=== PATIENT | female | born 1975 | race Asian ===

== ENCOUNTER → 2016-09-09 | Outpatient (CLI) | payer OTHER ==
[~2016-09-09] MED LIST: ACET-749 PO; CYAN1LOZ2 PO; DOCU-94 PO; DOXY100C PO; FRRS300 PO; PRT40 PO
== END | disposition home or self-care (01) ==
LOC: C.LAB1850 13:15
PROVIDERS: ATTEND Obstetrics & Gynecology
DX: Z30.8 Encounter for other contraceptive management (principal)

== ENCOUNTER 2017-05-17 10:32 | Emergency (ER) | payer OTHER ==
[~2017-05-17] VITALS: Ht 154.9 cm; Wt 82.6 kg
[~2017-05-17 10:32] MED LIST changes: -DOXY100C PO
[2017-05-17 10:34] VITALS: TEMP 36.7; Ht 154.9 cm; Wt 82.6 kg
--- NOTE | 2017-05-17 11:22 | EMERGENCY ROOM VISIT NOTE ---
History Report prepared by Enedina: Radha Iverson Under the Supervision of: Dr. Maykel Salcido M.D. First contact with patient: 10:44 Chief Complaint: OTHER COMPLAINT Stated Complaint: LARGE/PAINFUL BUMP IN BREAST History of Present Illness The patient is a 41 year old female who presents to the Emergency Room with complaints of constant left sided breast pain for the past week. The patient has had a small bump under her left breast for the past 2 years. She has spoken to her ship's cook about this in the past and was told that it was nothing to worry about. The patient thinks that she was given antibiotics at that time, but she cannot remember. The patient was and gave 1 year ago. She states that since she gave the lump has been getting bigger. Her LNMP was 1 week ago. During that time the lump became very painful and tender to the touch. This has continued this week. The patient rates her pain as an 8/10 in severity. She denies any fevers, chills, or drainage from the area. She had a normal mammogram a few years ago. Source of History: patient Onset: 1 week ago Position: other (left breast) Symptom Intensity: 8/10 Timing: constant Modifying Factors (Worsening): other (palpation) Associated Symptoms: No fevers, No chills Note: Pt denies drainage. Review of Systems See HPI for pertinent positives & negatives. A total of 10 systems reviewed and were otherwise negative. Past Medical & Surgical Medical Problems: (1) Anemia (2) Edema (3) with 32 completed weeks gestation (4) with 35 completed weeks gestation (5) contractions (6) Spotting affecting in third trimester (7) Vaginal discharge in in third trimester Family History Cancer Diabetes mellitus Heart disease Hypertension Social History Smoking Status: Never Smoker Alcohol Use: none Drug Use: none Marital Status: Housing Status: lives with family Occupation Status: student Current/Historical Medications Scheduled Doxycycline Hyclate (Vibramycin), 100 MG PO BID Allergies Coded Allergies: Ibuprofen (Unverified Allergy, Unknown, SWELLING, HEART RACES , 05/17/17) Naproxen (Unverified Allergy, Unknown, SWELLING, HEART RACES , 05/17/17) Physical Exam Vital Signs Date Time Temp Pulse Resp B/P (MAP) Pulse Ox O2 Delivery O2 Flow Rate FiO2 05/17/17 12:49 82 18 115/72 98 05/17/17 11:58 76 18 104/55 99 Room Air 05/17/17 10:34 36.7 88 16 122/72 99 Room Air Physical Exam GENERAL: Patient is in no acute distress. HEENT: No acute trauma, normocephalic atraumatic, mucous membranes moist, no nasal congestion, no scleral icterus. NECK: No stridor, no adenopathy, no meningismus, trachea is midline. LUNGS: Clear to auscultation bilaterally, no wheeze, no rhonchi, breath sounds equal. HEART: Without murmurs gallops or rubs, regular rate and rhythm. CHEST: There is a 3 cm firm and possibly fluid-filled lesion to the inferior medial margin of the left breast, no drainage or cellulitis. ABDOMEN: Soft, nontender, bowel sounds positive, no hernias, no peritonitis. EXTREMITIES: No cyanosis or edema, full range of motion of all the joints without pain or difficulty, no signs for acute trauma. NEUROLOGIC: Oriented x 3, no acute motor or sensory deficits, no focal weakness. SKIN: No rash, no jaundice, no diaphoresis. Medical Decision & Procedures ER Provider Diagnostic Interpretation: Radiology results as stated below per my review and radiologist interpretation: LEFT BREAST ULTRASOUND CLINICAL HISTORY: Painful left breast lump. COMPARISON STUDY: Left breast ultrasound May 31, 2013. FINDINGS: Sonography of the left breast at site of palpable abnormality demonstrated a 1.4 x 0.8 x 1.8 cm complex cystic subcutaneous lesion of the left breast with internal echoes which may reflect the lesion shown on exam of May 31, 2013. This is located at the 8:00 position. There is apparent extension to the skin. This lesion is immediately deep to the dermis. No additional lesions were identified. No color flow was identified within this lesion although there was apparent increased vascularity adjacent to this lesion. IMPRESSION: 1.8 x 1.4 x 0.8 cm complex subcutaneous cystic lesion of the left breast at the 8:00 position which may correspond to the lesion shown on exam of May 31, 2013. While nonspecific, a sebaceous cyst is favored and the findings raise the possibility of an infected sebaceous cyst. An abscess could have this imaging appearance. This could be correlated with clinical evidence for an infectious process. Imaging follow up is recommended to ensure resolution. Electronically signed by: Josep Wheeler M.D. 05/17/2017 12:05 PM Dictated Date/Time: 05/17/2017 12:00 PM Laboratory Results 05/17/17 11:15 Red Blood Count 4.57, Mean Corpuscular Volume 74.8, Mean Corpuscular Hemoglobin 22.1, Mean Corpuscular Hemoglobin Concent 29.5, Mean Platelet Volume 10.5, Neutrophils (%) (Auto) 60.5, Lymphocytes (%) (Auto) 32.0, Monocytes (%) (Auto) 5.2, Eosinophils (%) (Auto) 1.9, Basophils (%) (Auto) 0.2, Neutrophils # (Auto) 3.23, Lymphocytes # (Auto) 1.71, Monocytes # (Auto) 0.28, Eosinophils # (Auto) 0.10, Basophils # (Auto) 0.01 05/17/17 11:15 Test 05/17/17 11:15 White Blood Count 5.34 K/uL (4.8-10.8) Red Blood Count 4.57 M/uL (4.2-5.4) Hemoglobin 10.1 g/dL (12.0-16.0) Hematocrit 34.2 % (37-47) Mean Corpuscular Volume 74.8 fL (80-100) Mean Corpuscular Hemoglobin 22.1 pg (25-34) Mean Corpuscular Hemoglobin Concent 29.5 g/dl (32-36) Platelet Count 344 K/uL (130-400) Mean Platelet Volume 10.5 fL (7.4-10.4) Neutrophils (%) (Auto) 60.5 % Lymphocytes (%) (Auto) 32.0 % Monocytes (%) (Auto) 5.2 % Eosinophils (%) (Auto) 1.9 % Basophils (%) (Auto) 0.2 % Neutrophils # (Auto) 3.23 K/uL (1.4-6.5) Lymphocytes # (Auto) 1.71 K/uL (1.2-3.4) Monocytes # (Auto) 0.28 K/uL (0.11-0.59) Eosinophils # (Auto) 0.10 K/uL (0-0.5) Basophils # (Auto) 0.01 K/uL (0-0.2) RDW Standard Deviation 44.1 fL (36.4-46.3) RDW Coefficient of Variation 16.0 % (11.5-14.5) Immature Granulocyte % (Auto) 0.2 % Immature Granulocyte # (Auto) 0.01 K/uL (0.00-0.02) Microcytosis PRESENT Anion Gap 8.0 mmol/L (3-11) Est Creatinine Clear Calc Drug Dose 145.7 ml/min Estimated GFR () 140.3 Estimated GFR (Non- 121.1 BUN/Creatinine Ratio 28.8 (10-20) Calcium Level 8.3 mg/dl (8.5-10.1) Laboratory results reviewed by me. Medications Administered Medications (Trade) Dose Ordered Sig/Adore Route Start Time Stop Time Status Last Admin Dose Admin Doxycycline Hyclate (Vibramycin Cap) 100 mg ONE ONCE PO 05/17/17 12:30 05/17/17 12:31 DC 05/17/17 12:44 100 MG ED Course 1044: The patient was evaluated in room B10. A complete history and physical exam was performed. 1222: I spoke with Dr. Mcnulty of plastic surgery and breast reconstruction. We discussed the patient's case. She did not think that the area should be opened now. She recommended antibiotics and she will follow-up with the patient in the office later this week. 1230: Vibramycin 100 mg PO 1231: I reassessed the patient at this time. She is feeling better and resting comfortably. I discussed the results and treatment plan with the patient. I answered all pertaining questions that she had. She expressed understanding and verbalized agreement. The patient will be discharged home. Medical Decision Differential diagnoses includes abscess or cyst, cellulitis, ingrown hair follicle, tumor. There is no leukocytosis, a mild anemia is present. Renal panel testing shows a very mild blood sugar elevation for which the patient can follow with the family doctor's office. Left breast ultrasound shows a cystic lesion consistent with cyst or possibly abscess. The patient is not toxic or febrile. There was no cellulitis to the left breast. I did speak with the on-call plastic surgeon and breast reconstruction specialist. The patient is to be placed on antibiotics and then seen in the office for potential excision of the cystic structure. Patient was happy with this plan and care. She was given oral doxycycline before discharge. She was given information to set up an appointment for this week. Medication Reconcilliation Current Medication List: was personally reviewed by me Blood Pressure Screening Patient's blood pressure: Normal blood pressure Consults Time Called: 1219 Consulting Physician: Dr. Mcnulty Returned Call: [address] Mcnulty of plastic surgery and breast reconstruction. We discussed the patient's case. She did not think that the area should be opened now. She recommended antibiotics and she will follow-up with the patient in the office later this week. Impression Primary Impression: Cyst of left breast Scribe Attestation The scribe's documentation has been prepared under my direction and personally reviewed by me in its entirety. I confirm that the note above accurately reflects all work, treatment, procedures, and medical decision making performed by me. Departure Information Dispostion Home / Self-Care Prescriptions Doxycycline Hyclate (VIBRAMYCIN) 100 Mg Cap 100 MG PO BID for 14 Days, #28 CAP Prov: Maykel Salcido M.D. 05/17/17 Referrals Mya Kate (PCP) Sharyn Mcnulty MD Forms HOME CARE DOCUMENTATION FORM, IMPORTANT VISIT INFORMATION, WORK / SCHOOL INSTRUCTIONS Patient Instructions My [facility]
[2017-05-17 11:42] LABS: BASO % 0.2 %; BASO ABS # 0.01 K/uL (0-0.2); EOS % 1.9 %; HEMATOCRIT 34.2 % (37-47); IG% 0.2 %; LYMPH ABS # 1.71 K/uL (1.2-3.4); MEAN CELL VOLUME 74.8 fL (80-100); MEAN CORPUSCULAR HEMOGLOBIN 22.1 pg (25-34); MEAN CORPUSCULAR HGB CONC 29.5 g/dl (32-36); MEAN PLATELET VOLUME 10.5 fL (7.4-10.4); MONO % 5.2 %; NEUT % 60.5 %; PLATELET COUNT 344 K/uL (130-400); RED BLOOD COUNT 4.57 M/uL (4.2-5.4); WHITE BLOOD COUNT 5.34 K/uL (4.8-10.8)
[2017-05-17 12:01] LABS: BUN/CREATININE RATIO 28.8 (10-20); CALCIUM 8.3 mg/dl (8.5-10.1); COMPLETE YES; CREATININE 0.5 mg/dl (0.60-1.20); MICROCYTOSIS PRESENT; POTASSIUM 3.8 mmol/L (3.5-5.1)
--- NOTE | 2017-05-17 12:06 | DIAGNOSTIC IMAGING REPORT ---
LEFT BREAST ULTRASOUND CLINICAL HISTORY: Painful left breast lump. COMPARISON STUDY: Left breast ultrasound May 31, 2013. FINDINGS: Sonography of the left breast at site of palpable abnormality demonstrated a 1.4 x 0.8 x 1.8 cm complex cystic subcutaneous lesion of the left breast with internal echoes which may reflect the lesion shown on exam of May 31, 2013. This is located at the 8:00 position. There is apparent extension to the skin. This lesion is immediately deep to the dermis. No additional lesions were identified. No color flow was identified within this lesion although there was apparent increased vascularity adjacent to this lesion. IMPRESSION: 1.8 x 1.4 x 0.8 cm complex subcutaneous cystic lesion of the left breast at the 8:00 position which may correspond to the lesion shown on exam of May 31, 2013. While nonspecific, a sebaceous cyst is favored and the findings raise the possibility of an infected sebaceous cyst. An abscess could have this imaging appearance. This could be correlated with clinical evidence for an infectious process. Imaging follow up is recommended to ensure resolution. Electronically signed by: Josep Wheeler M.D. 05/17/2017 12:05 PM Dictated Date/Time: 05/17/2017 12:00 PM
[2017-05-17] MEDS ORDERED: DOXY100C PO (12:28)
[2017-05-17] MEDS ORDERED: DOXYCYCLINE HYCLATE 100 MG CAP PO ONE (12:30)
[2017-05-17 12:49] VITALS: BP 115/72; PULSE 82; O2SAT 98
== END 2017-05-17 12:46 | disposition home or self-care (01) ==
LOC: C.EDB 10:34
DX: N60.02 Solitary cyst of left breast (principal); N64.4 Mastodynia

== ENCOUNTER → 2017-08-08 | Outpatient (CLI) | payer OTHER | END | disposition home or self-care (01) | LOC: C.PAPS 09:12 | PROVIDERS: ATTEND Obstetrics & Gynecology | DX: Z01.419 Encounter for gynecological examination (general) (routine) without abnormal findings (principal) ==

== ENCOUNTER 2017-08-17 00:45 | Emergency (ER) | payer OTHER ==
[~2017-08-17] VITALS: Ht 154.9 cm; Wt 81.0 kg
[2017-08-17 00:45] VITALS: TEMP 36.7; Ht 154.9 cm; Wt 81.0 kg
[2017-08-17] MEDS ORDERED: ALBUT/IPRATROP 3MG/0.5MG NEB 3 ML VIAL INH STA (00:51)
[2017-08-17] MEDS ORDERED: ALUMINUM/MAGNESIUM SUSP 30 ML UDC PO STA (00:51)
[2017-08-17] MEDS ORDERED: LIDOCAINE HCL 2% VISC SOLN 20 ML UDC PO STA (00:51)
--- NOTE | 2017-08-17 01:26 | EMERGENCY ROOM VISIT NOTE ---
History First contact with patient: 00:50 Chief Complaint: COUGH Stated Complaint: COUGH Nursing Triage Summary: Patient in room with daughter, who is a patient in the ED currently. Patient states, "I think I need to be seen. I've been coughing, too and I had it before her." History of Present Illness The patient is a 41 year old female who presents to the Emergency Room with complaints of cough, congestion, runny nose, throat irritation for the past week. Patient denies chest pain, dyspnea, neck stiffness, sore throat, abdominal pain, vomiting, diarrhea. Child is sick with similar symptoms. Review of Systems See HPI for pertinent positives & negatives. A total of 10 systems reviewed and were otherwise negative. Past Medical/Surgical History Medical Problems: (1) Anemia (2) Edema (3) with 32 completed weeks gestation (4) with 35 completed weeks gestation (5) contractions (6) Spotting affecting in third trimester (7) Vaginal discharge in in third trimester Family History Cancer Diabetes mellitus Heart disease Hypertension Social History Smoking Status: Never Smoker Smokeless Tobacco Use: No Alcohol Use: none Drug Use: none Marital Status: Housing Status: lives with family Physical Exam Vital Signs Date Time Temp Pulse Resp B/P (MAP) Pulse Ox O2 Delivery O2 Flow Rate FiO2 08/17/17 00:45 36.7 74 18 122/86 96 Room Air 08/17/17 00:45 99 Room Air Physical Exam VITALS: Vitals are noted on the nurse's note and reviewed by myself. Vital signs stable. GENERAL: Pleasant female speaking in full sentences, in no acute distress, nondiaphoretic, well-developed well-nourished. SKIN: The skin was without rashes, erythema, edema, or bruising. There is no tenting of the skin. Capillary reflex less than 2 seconds. HEAD: Normocephalic atraumatic. EARS: External auditory canals clear, tympanic membranes pearly ross without erythema or effusion bilaterally. EYES: Pupils equal round and reactive to light and accommodation. Conjunctivae without injection, sclerae without icterus. Extraocular movements intact. NOSE: Patent, turbinates without inflammation or discharge. No sinus tenderness. MOUTH: Mucous membranes moist. Pharynx without erythema or exudate. Uvula midline. Airway patent. Tongue does not deviate. NECK: Supple without nuchal rigidity. No lymphadenopathy. No thyromegaly. Cervical spine is nontender. No JVD. HEART: Regular rate and rhythm without murmurs gallops or rubs. LUNGS: Clear to auscultation bilaterally without wheezes, rales or rhonchi. No dullness to percussion. No retractions or accessory muscle use. ABDOMEN: Positive bowel sounds x 4. Normal tympanic percussion. Soft, nontender, without masses or organomegaly. Alejandra sign negative. No guarding or rebound tenderness. MUSCULOSKELETAL: No muscle atrophy, erythema, or edema noted. NEURO: Patient was alert and oriented to person place and time. Normal sensation to light and sharp touch. No focal neurological deficits. Medical Decision & Procedures Medications Administered Medications (Trade) Dose Ordered Sig/Adore Route Start Time Stop Time Status Last Admin Dose Admin Albuterol/ Ipratropium (Duoneb) 3 ml NOW STAT INH 08/17/17 00:51 08/17/17 00:52 DC 08/17/17 00:58 3 ML Lidocaine HCl (Viscous Lidocaine 2% Soln) 10 ml NOW STAT PO 08/17/17 00:51 08/17/17 00:52 DC 08/17/17 00:58 10 ML Al Hydroxide/Mg Hydroxide (Maalox Susp) 30 ml NOW STAT PO 08/17/17 00:51 08/17/17 00:52 DC 08/17/17 00:58 30 ML ED Course Prior records/ancillary studies reviewed. Triage Nursing notes reviewed. Additional history obtained from family The patient's history was concerning for a cold symptoms. Differential diagnosis: Etiologies such as viral syndrome, tonsillitis, streptococcal pharyngitis, bronchitis, peritonsillar abscess, retropharyngeal abscess, otitis, pneumonia, influenza, as well as others were entertained. ER treatment provided: Nebulizer, GI cocktail On reassessment the patient felt better. Diagnostics interpreted by me: Imaging studies: Chest x-ray concerning for possible developing right lower lobe infiltrate without pneumothorax or free air per my interpretation This appears to be consistent with pneumonia. Patient has had the meningitis. She is well-appearing. She is tolerating fluids. Symptoms present for over a week. She is advised to take medicines as directed and to follow-up with family care in a few days or here in the ER sooner for high fevers, lethargy, difficulty breathing, worsening signs or symptoms or as needed. By the evaluation outlined above emergent etiologies such as peritonsillar abscess, retropharyngeal abscess, otitis, meningitis, urinary tract infection, sepsis, bacteremia, as well as others were deemed relatively unlikely. The pt informed about the findings as listed above. All questions were answered and pleased with the treatment. Return instructions were outlined and the patient was discharged in stable condition. Outpatient prescription management: Zithromax Referral: The patient was referred back to their primary care physician for follow-up in 2 to 3 days for a recheck of the current condition. The chart was completed utilizing [employer] Speech voice recognition software. Grammatical errors, random word insertions, pronoun errors, and incomplete sentences are an occassional consequence of this system due to software limitations, ambient noise, and hardware issues. Any formal questions or concerns about the content, text, or information contained within the body of this dictation should be directly addressed to the physician therapist's assistant for clarification. Medical Decision As above Medication Reconcilliation Current Medication List: was personally reviewed by me Blood Pressure Screening Patient's blood pressure: Normal blood pressure Impression Primary Impression: Pneumonia Departure Information Dispostion Home / Self-Care Condition GOOD Referrals Mya Kate (PCP) Patient Instructions My [facility] Additional Instructions Azithromycin(Zithromax) 500mg: Take one a day for 4 additional days. All antibiotics can cause diarrhea. If this occurs and you feel worse or it does not resolve in 1-2 days follow up with your doctor or return to the Emergency Department as this could be signs of serious underlying problems. Any medication can cause an allergic reaction, stop the pills immediately and return to the ER for rash, hives, breathing difficulties, or swelling. Acetaminophen(Tylenol) may be used for fever or pain. Use 1000mg every six hours as needed. Avoid using more than 3000mg in a 24 hour period. Afrin nasal spray: 2-3 sprays to each nostril twice daily as needed for congestion. Do not use for more than 3-4 days because it can lead to worsening rebound congestion. Pseudoephedrine(Sudaphed): 30-60mg every 6 hours as needed for nasal congestion. Do not take this with other stimulant products or supplements. Albuterol Inhaler: Take 2 puffs four times daily for seven days, then as needed. Rest and drink plenty of fluids. Controlling your fever with Tylenol and Ibuprofen as above will make you feel better. Wash your hands after nose blowing, sneezing, or coughing. Most germs are spread through contact, therefore improper hygiene may result in your close contacts and loved ones becoming ill just like you. Continue current medications. Return to the ER for severe headache, neck stiffness, chest pain, difficulty breathing, fevers, vomiting, worsening of your condition, or as needed. Follow up with your primary physician this week for a recheck of your current condition. Problem Qualifiers Primary Impression: Pneumonia Pneumonia type: due to unspecified organism Laterality: right Lung location : lower lobe of lung Qualified Codes: J18.1 - Lobar pneumonia, unspecified organism
[2017-08-17] MEDS ORDERED: AZIT500T PO (01:27)
[2017-08-17] MEDS ORDERED: AZITHROMYCIN 250 MG TAB PO ONE (01:30)
[2017-08-17] MEDS ORDERED: ALBUTEROL HFA 8 GM INHALER INH ONE (01:30)
[2017-08-17 01:57] VITALS: BP 118/84; PULSE 82; O2SAT 97
--- NOTE | 2017-08-17 06:55 | DIAGNOSTIC IMAGING REPORT ---
CHEST 2 VIEWS ROUTINE CLINICAL HISTORY: cough/congestion x 1 week COMPARISON STUDY: Chest radiograph and chest CT April 29, 2016. FINDINGS: Lung volumes are at the lower limits of normal. There is no pneumothorax or pleural effusion. There is no consolidation to suggest pneumonia. There is no evidence of pulmonary edema. Cardiomediastinal silhouette is stable. IMPRESSION: No acute cardiopulmonary findings. Electronically signed by: Josep Wheeler M.D. 08/17/2017 6:54 AM Dictated Date/Time: 08/17/2017 6:53 AM
== END 2017-08-17 01:58 | disposition home or self-care (01) ==
LOC: C.EDB 00:45 → EDBD 00:45 → C.EDB 01:58
DX: J18.9 Pneumonia, unspecified organism (principal); Z83.3 Family history of diabetes mellitus; Z82.49 Family history of ischemic heart disease and other diseases of the circulatory system

== ENCOUNTER → 2017-09-15 | Outpatient (CLI) | payer OTHER ==
[~2017-09-15] MED LIST changes: -ACET-749 PO; +AZIT500T PO; -CYAN1LOZ2 PO; -DOCU-94 PO; -FRRS300 PO; -PRT40 PO
== END | disposition home or self-care (01) ==
LOC: C.PATHSPEC 18:04
PROVIDERS: ATTEND Plastic Surgery
DX: N60.02 Solitary cyst of left breast (principal); L72.0 Epidermal cyst; N64.9 Disorder of breast, unspecified

== ENCOUNTER → 2017-10-13 | Outpatient (CLI) | payer OTHER | END | disposition home or self-care (01) | LOC: C.LABSPEC 13:15 | PROVIDERS: ATTEND Obstetrics & Gynecology | DX: N89.8 Other specified noninflammatory disorders of vagina (principal) ==

== ENCOUNTER 2017-12-11 23:23 | Emergency (ER) | payer OTHER ==
[~2017-12-11] VITALS: Ht 154.9 cm; Wt 78.0 kg
[2017-12-11 23:31] VITALS: TEMP 36.8; Ht 154.9 cm; Wt 78.0 kg
[2017-12-11] MEDS ORDERED: SODIUM CHLORIDE 0.9% 1000ML 1,000 ML IV STA (23:47)
[2017-12-11] MEDS ORDERED: DiphenhydrAMINE HCL 50 MG/ML VIAL IV STA (23:47)
[2017-12-11] MEDS ORDERED: METOCLOPRAMIDE HCL INJ 5 MG/ML 2 ML VIAL IV STA (23:47)
[2017-12-11] MEDS ORDERED: SIME80CH PO (23:53)
[2017-12-12] MEDS ORDERED: ACETAMINOPHEN 500 MG TAB PO STA (00:03)
[2017-12-12 00:27] LABS: HEMATOCRIT 42.1 % (37-47); HEMOGLOBIN 14.4 g/dL (12.0-16.0); MEAN CELL VOLUME 86.3 fL (80-100); MEAN CORPUSCULAR HEMOGLOBIN 29.5 pg (25-34); MEAN CORPUSCULAR HGB CONC 34.2 g/dl (32-36); MEAN PLATELET VOLUME 10.3 fL (7.4-10.4); PLATELET COUNT 378 K/uL (130-400); RED CELL DISTRIBUTION WIDTH CV 14.2 % (11.5-14.5); RED CELL DISTRIBUTION WIDTH SD 44.2 fL (36.4-46.3); WHITE BLOOD COUNT 4.19 K/uL (4.8-10.8)
[2017-12-12 00:33] VITALS: O2SAT 98
[2017-12-12 00:49] LABS: ALBUMIN 4.4 gm/dl (3.4-5.0); CALCIUM 8.8 mg/dl (8.5-10.1); CREATININE 0.58 mg/dl (0.60-1.20); POTASSIUM 3.5 mmol/L (3.5-5.1)
[2017-12-12] MEDS ORDERED: MAGNESIUM SULFATE 1GM / D5W 1 GM BAG IV STA (00:53)
[2017-12-12] MEDS ORDERED: SODIUM CHLORIDE 0.9% 1000ML 1,000 ML IV STA (00:53)
[2017-12-12 00:59] LABS: TOTAL PROTEIN 8.3 gm/dl (6.4-8.2)
[2017-12-12] MEDS ORDERED: DEXTROSE 50% 50 ML SYR IV STA (01:10)
[2017-12-12] MEDS ORDERED: BENTYL HOME PACK 10 MG VIAL ONE (03:05)
[2017-12-12] MEDS ORDERED: DICY10CA55 PO (03:11)
[2017-12-12 03:12] VITALS: BP 124/68; PULSE 80; O2SAT 98
--- NOTE | 2017-12-12 03:29 | EMERGENCY ROOM VISIT NOTE ---
History First contact with patient: 23:36 Chief Complaint: DIZZY Stated Complaint: SEVERE BACK PAIN Nursing Triage Summary: pt c/o dizziness and fatigue for several days. pt reports she has been fasting for anglican purposes. pt has hx of gastric sleeve and electrolyte imbalances. also c/o generalized back pain. History of Present Illness The patient is a 42 year old female who presents to the Emergency Room with complaints of nausea, dehydration, lightheadedness and back achiness for the past few days with gastric sleeve bypass 3 weeks ago and has been barely eating or drinking secondary to fasting due to anglican purposes. Patient denies chest pain, dyspnea, vomiting, abdominal pain, fever, chills, cough, congestion , cold symptoms. Patient states she is a hard time drinking secondary to the recent surgery. Patient states due to her anglican beliefs she has been fasting these past 3 days during daylight hours. She has been unable to keep enough fluids in her. Review of Systems An 10 system review of systems was completed with positives and pertinent negatives listed in the HPI. Past Medical/Surgical History Medical Problems: (1) Anemia (2) Edema (3) with 32 completed weeks gestation (4) with 35 completed weeks gestation (5) contractions (6) Spotting affecting in third trimester (7) Vaginal discharge in in third trimester Family History Cancer Diabetes mellitus Heart disease Hypertension Social History Smoking Status: Never Smoker Alcohol Use: none Drug Use: none Marital Status: Housing Status: lives with family Current/Historical Medications Scheduled Dicyclomine Hcl (Bentyl), 10 MG PO Q6 Scheduled PRN Simethicone (Gas-X), 80 MG PO UD PRN for Gas or Constipation Physical Exam Vital Signs Date Time Temp Pulse Resp B/P (MAP) Pulse Ox O2 Delivery O2 Flow Rate FiO2 12/12/17 02:10 80 18 124/68 98 Room Air 12/12/17 00:33 98 Room Air 12/12/17 00:33 78 18 105/70 98 Room Air 91 106/80 94 113/80 12/11/17 23:31 36.8 89 16 114/80 99 Room Air Physical Exam VITALS: Vitals are noted on the nurse's note and reviewed by myself. Vital signs stable. GENERAL: Pleasant female, in no acute distress, nondiaphoretic, well-developed well-nourished. SKIN: The skin was without rashes, erythema, edema, or bruising. There is no tenting of the skin. Capillary reflex less than 2 seconds. HEAD: Normocephalic atraumatic. EARS: External auditory canals clear, tympanic membranes pearly ross without erythema or effusion bilaterally. EYES: Pupils equal round and reactive to light and accommodation. Conjunctivae without injection, sclerae without icterus. Extraocular movements intact. NOSE: Patent, turbinates without inflammation or discharge. No sinus tenderness. MOUTH: Mucous membranes mildly dry. Pharynx without erythema or exudate. Uvula midline. Airway patent. Tongue does not deviate. NECK: Supple without nuchal rigidity. No lymphadenopathy. No thyromegaly. Cervical spine is nontender. No JVD. HEART: Regular rate and rhythm without murmurs gallops or rubs. LUNGS: Clear to auscultation bilaterally without wheezes, rales or rhonchi. No retractions or accessory muscle use. ABDOMEN: Positive bowel sounds x 4. Normal tympanic percussion. Soft, nontender, without masses or organomegaly. Alejandra sign negative. No guarding or rebound tenderness. No CVA tenderness MUSCULOSKELETAL: No muscle atrophy, erythema, or edema noted. No thoracic or lumbar tenderness on exam. Patient can ambulate without difficulties. Paraspinous muscles tender to palpation. NEURO: Patient was alert and oriented to person place and time. Normal sensation to light and sharp touch. No focal neurological deficits. Medical Decision & Procedures Laboratory Results 12/11/17 00:11 Red Blood Count 4.88, Mean Corpuscular Volume 86.3, Mean Corpuscular Hemoglobin 29.5, Mean Corpuscular Hemoglobin Concent 34.2, Mean Platelet Volume 10.3 12/11/17 00:11 Test 12/11/17 00:11 12/12/17 00:18 12/12/17 02:05 White Blood Count 4.19 K/uL (4.8-10.8) Red Blood Count 4.88 M/uL (4.2-5.4) Hemoglobin 14.4 g/dL (12.0-16.0) Hematocrit 42.1 % (37-47) Mean Corpuscular Volume 86.3 fL (80-100) Mean Corpuscular Hemoglobin 29.5 pg (25-34) Mean Corpuscular Hemoglobin Concent 34.2 g/dl (32-36) Platelet Count 378 K/uL (130-400) Mean Platelet Volume 10.3 fL (7.4-10.4) RDW Standard Deviation 44.2 fL (36.4-46.3) RDW Coefficient of Variation 14.2 % (11.5-14.5) Neutrophils % (Manual) 29.0 % Lymphocytes % (Manual) 40.0 % Monocytes % (Manual) 5.0 % Eosinophils % (Manual) 3.0 % Basophils % (Manual) 1.0 % Neutrophils # (Manual) 1.22 K/uL (1.4-6.5) Total Absolute Neutrophils 1.22 K/uL (1.4-6.5) Lymphocytes # (Manual) 1.68 K/uL (1.2-3.4) Total Absolute Lymphocytes 2.60 K/uL (1.2-3.4) Monocytes # (Manual) 0.21 K/uL (0.11-0.59) Eosinophils # (Manual) 0.13 K/uL (0-0.5) Basophils # (Manual) 0.04 K/uL (0-0.2) Percent Large Granular Lymphocytes 22.0 % Absolute Large Granular Lymphocytes 0.92 K/uL Echinocytes 1+ Anion Gap 15.0 mmol/L (3-11) Est Creatinine Clear Calc Drug Dose 120.6 ml/min Estimated GFR () 132.7 Estimated GFR (Non- 114.5 BUN/Creatinine Ratio 5.2 (10-20) Calcium Level 8.8 mg/dl (8.5-10.1) Magnesium Level 1.6 mg/dl (1.8-2.4) Total Bilirubin 0.5 mg/dl (0.2-1) Direct Bilirubin 0.1 mg/dl (0-0.2) Aspartate Amino Transf (AST/SGOT) 31 U/L (15-37) Alanine Aminotransferase (ALT/SGPT) 58 U/L (12-78) Alkaline Phosphatase 59 U/L (45-117) Total Creatine Kinase 62 U/L (26-192) Total Protein 8.3 gm/dl (6.4-8.2) Albumin 4.4 gm/dl (3.4-5.0) Thyroid Stimulating Hormone (TSH) 1.820 uIu/ml (0.300-4.500) Human Chorionic Gonadotropin, Qual NEG (NEG) Urine Color YELLOW Urine Appearance CLEAR (CLEAR) Urine pH 5.5 (4.5-7.5) Urine Specific [place] 1.025 (1.000-1.030) Urine Protein TRACE (NEG) Urine Glucose (UA) NEG (NEG) Urine Ketones 4+ (NEG) Urine Occult Blood TRACE (NEG) Urine Nitrite NEG (NEG) Urine Bilirubin NEG (NEG) Urine Urobilinogen NEG (NEG) Urine Leukocyte Esterase NEG (NEG) Urine WBC (Auto) 1-5 /hpf (0-5) Urine RBC (Auto) 0-4 /hpf (0-4) Urine Hyaline Casts (Auto) 5-10 /lpf (0-5) Urine Epithelial Cells (Auto) >30 /lpf (0-5) Urine Bacteria (Auto) NEG (NEG) Bedside Glucose 180 mg/dl (70-90) Medications Administered Medications (Trade) Dose Ordered Sig/Adore Route Start Time Stop Time Status Last Admin Dose Admin Sodium Chloride 1,000 ml @ 999 mls/hr Q1H1M STAT IV 12/11/17 23:47 12/12/17 00:47 DC 12/12/17 00:32 999 MLS/HR Sodium Chloride 1,000 ml @ 999 mls/hr Q1H1M STAT IV 12/12/17 00:53 12/12/17 01:53 DC 12/12/17 01:24 999 MLS/HR Magnesium Sulfate (Magnesium Sulfate) 1 gm NOW STAT IV 12/12/17 00:53 12/12/17 00:54 DC 12/12/17 01:25 1 GM Dextrose (Dextrose 50% 50ML Syringe) 50 ml NOW STAT IV 12/12/17 01:10 12/12/17 01:11 DC 12/12/17 01:25 50 ML ED Course Prior records/ancillary studies reviewed and summarized above. Nursing notes reviewed. Additional history obtained from The patient's history was concerning for nausea, weakness, lightheadedness, back pain. Differential diagnosis: Etiologies such as metabolic, infection, hypo/hyperglycemia, electrolyte abnormalities, cardiac sources, intracerebral event, toxicologic, neurologic, as well as others were entertained. Physical examination: As above. ER treatment provided: IV Lock IV fluids, magnesium, glucose, Tylenol On reassessment the patient felt better. Diagnostics interpretation by me: ECG: Normal sinus, normal intervals, no acute ST-T wave changes, rate of 83. Impression normal sinus rhythm interpreted by myself The labs revealed hyperglycemia and patient was given dextrose. Patient refused to eat. Hypomagnesia. Patient was given magnesium Urine with ketones present Exam and history seem consistent with dehydration and electrolyte abnormalities. Patient felt much better after being medicated as above. She was strongly encouraged to avoid fasting and to follow her diet regimen outlined by her gastric surgeon who did her gastric sleeve surgery a few weeks ago. Patient agreed to this. She is encouraged to check all her vitamin levels and repeat blood tests today that were low with the family care doctor this week. Patient requested a bloating gas medicine and was given a short prescription for Bentyl. Patient was advised to return to the ER immediately for abdominal pain, fevers, vomiting, weakness, worsening signs or symptoms or as needed. Patient was neurovascularly and neurologically intact. She did not have acute abdomen on exam. She was ambulating without difficulties. She was well-appearing. By the evaluation outlined above emergent etiologies such as infection, cardiac sources, intracerebral event, toxologic, neurologic,metabolic, as well as others were deemed relatively unlikely. The pt informed about the findings as listed above. All questions were answered and pleased with the treatment. Return instructions were outlined and the patient was discharged in stable condition. Outpatient prescription management: Bentyl Referral: The patient was referred back to primary care physician for follow-up in 2 to 3 days for a recheck of the current condition. Case reviewed with my attending The chart was completed utilizing [employer] Speech voice recognition software. Grammatical errors, random word insertions, pronoun errors, and incomplete sentences are an occassional consequence of this system due to software limitations, ambient noise, and hardware issues. Any formal questions or concerns about the content, text, or information contained within the body of this dictation should be directly addressed to the physician assistant grocery store manager for clarification. Medical Decision As above Medication Reconcilliation Current Medication List: was personally reviewed by me Blood Pressure Screening Patient's blood pressure: Normal blood pressure Impression Primary Impression: Dehydration Additional Impression: Hypoglycemia and hypomagnesia Departure Information Dispostion Home / Self-Care Condition GOOD Prescriptions Dicyclomine Hcl (BENTYL) 10 Mg Cap 10 MG PO Q6, #30 CAP Prov: Malina Viera .SMITH 12/12/17 Forms HOME CARE DOCUMENTATION FORM, IMPORTANT VISIT INFORMATION Patient Instructions Dehydration, My [facility] Additional Instructions Recommend that you follow your gastric surgeons recommended diet for you for your gastric sleeve procedure. Recommend that you do not fast currently as this increases your chance of dehydration and electrolyte imbalances. Recheck your glucose and magnesium this week with the family care doctor. Recommend that you have all your vitamin levels checked by the family care doctor. Rest and drink plenty of fluids as tolerated. Continue current medications. Avoid strenuous activities and anything that worsens your pain. Resume normal activities once your symptoms resolve. Return to the ER immediately for abdominal pain, vomiting, fevers, chest pains , difficulty breathing, worsening of your condition, or as needed. Follow up with your primary physician in 2-3 days for a recheck of your current condition. Problem Qualifiers
== END 2017-12-12 03:16 | disposition home or self-care (01) ==
LOC: C.EDB 23:24 → C.EDC 12-12 03:16
DX: E86.0 Dehydration (principal); E16.2 Hypoglycemia, unspecified; E83.42 Hypomagnesemia; Z98.84 Bariatric surgery status

== ENCOUNTER → 2017-12-29 | Outpatient (CLI) | payer OTHER ==
[~2017-12-29] MED LIST changes: -AZIT500T PO; +SIME80CH PO
== END | disposition home or self-care (01) ==
LOC: C.LABSPEC 13:29
PROVIDERS: ATTEND Obstetrics & Gynecology
DX: N89.8 Other specified noninflammatory disorders of vagina (principal)